=== PATIENT | male | born 1985 | race Caucasian/White ===

== ENCOUNTER 2017-04-26 18:48 | Emergency (ER) | payer BC, OTHER ==
--- NOTE | 2017-04-26 19:06 | EDM.PDOC ---
ED HPI GENERAL MEDICAL PROBLEM - General Chief Complaint: Upper Extremity Injury/Pain Stated Complaint: FINGER LACERATION Time Seen by Provider: 04/26/17 19:06 Source of Information: Reports: Patient History Limitations: Reports: No Limitations - History of Present Illness INITIAL COMMENTS - FREE TEXT/NARRATIVE: 31-year-old male reports an acute injury to his right third finger occurred when a gun safe fell on it this evening. Patient states was helping a neighbor move a gun safe down a stairwell he missed the last stair rolled his left ankle and lost his balance. This caused the gun safe to fall on top of his left hand injuring his middle phalanx. Of note he is right-hand dominant. Last tetanus toxoid was approximate 7 years ago. Wound is open and actively bleeding along the middle phalanx. There is an obvious deformity of the finger suggesting fracture. Patient finished supper about 1730 hrs. tonight. Onset: Today Onset Date: 04/26/17 Onset Time: 18:30 Duration: Minutes: Location: Reports: Upper Extremity, Right Quality: Reports: Ache, Throbbing Severity: Moderate Improves with: Reports: None Worsens with: Reports: Movement Context: Reports: Trauma (Crushtype injury.) Associated Symptoms: Reports: No Other Symptoms Treatments PROCESS TECHNICIAN: Reports: Other (see below) (None.) Right Hand Pain Score (Numeric/FACES): 8 - Related Data Allergies Allergy/AdvReac Type Severity Reaction Status Date / Time No Known Allergies Allergy Verified 04/26/17 19:01 Home Meds: Home Meds Doxycycline [Vibramycin] 100 mg PO Q12HR #20 cap 04/26/17 [Rx] oxyCODONE HCl/Acetaminophen [Percocet 5-325 mg Tablet] 1 - 2 each PO Q4H PRN # 20 tablet 04/26/17 [Rx] Social & Family History - Living Situation & Occupation Living situation: Reports: Occupation: Employed Review of Systems - Review of Systems Review Of Systems: See Below Constitutional: Reports: No Symptoms Eyes: Reports: No Symptoms Ears: Reports: No Symptoms Nose: Reports: No Symptoms Mouth/Throat: Reports: No Symptoms Respiratory: Reports: No Symptoms Cardiovascular: Reports: No Symptoms GI/Abdominal: Reports: No Symptoms Genitourinary: Reports: No Symptoms Musculoskeletal: Reports: Hand Pain (Right third finger) Skin: Reports: No Symptoms Neurological: Reports: No Symptoms Psychiatric: Reports: No Symptoms ED EXAM, GENERAL - Physical Exam Exam: See Below Exam Limited By: No Limitations General Appearance: Alert, WD/WN, No Apparent Distress Respiratory/Chest: No Respiratory Distress, Lungs Clear, Normal Breath Sounds Cardiovascular: Normal Peripheral Pulses, Regular Rate, Rhythm, No Edema, No Gallop, No Murmur GI/Abdominal: Normal Bowel Sounds, Soft, Non-Tender, No Organomegaly Extremities: Other (Examination of the right third finger reveals an obvious deformity no phalanx. He still has sensation to the tip on both ulnar and radial surfaces. There is a laceration--3cm mid volar aspect of the finger over the middle phalanx. This is jagged and deep. After finger was anesthetized he does have evidence of ability of flex at the DIP joint indicating that the tendons appear to be intact.) Psychiatric: Normal Affect, Normal Mood Skin Exam: Warm, Dry, Intact ED TRAUMA EXTREMITY PROCEDURES - Laceration/Wound Repair Right Middle Midline Finger Lac/Wound Length In cm: 3.0 Appearance: Subcutaneous, Irregular, Clean Distal NVT: Neuro & Vascular Intact, No Tendon Injury Anesthetic Type: Digital Local Anesthesia - Bupivicaine (Marcaine): 0.5% Plain Local Anesthetic Volume: Other (6 mL) Skin Prep: Chlorhexidine (Hibiciens), Saline Saline Irrigation (cc's): 200 Exploration/Debridement/Repair: Wound Explored, Minimal Debridement Closed With: Sutures Suture Size: 4-0 # of Sutures: 10 Suture Type: Nylon, Interrupted, Simple Course - Vital Signs Last Recorded V/S: Last Vital Signs Temp 35.8 C 04/26/17 19:01 Pulse 86 04/26/17 19:01 Resp 16 04/26/17 19:01 BP 144/83 H 04/26/17 19:01 Pulse Ox 95 04/26/17 19:01 - Orders/Labs/Meds Orders: Active Orders 24 hr Category Date Time Status Peripheral IV Care [RC] . DIRECTED Care 04/26/17 19:10 Active Hand Comp Min 3V Rt [CR] Stat Exams 04/26/17 19:07 Taken Peripheral IV Insertion Adult [OM.PC] Stat Oth 04/26/17 19:10 Ordered Meds: Medications Discontinued Medications Generic Name Dose Route Start Last Admin Trade Name Freq PRN Reason Stop Dose Admin Bupivacaine HCl 10 ml 04/26/17 19:09 04/26/17 19:27 Sensorcaine-Mpf 0.5% INJECT 04/26/17 19:10 10 ml ONETIME ONE Administration Cefazolin Sodium/Dextrose 1 gm 50 mls @ 100 mls/hr 04/26/17 19:10 04/26/17 19 :27 / Premix IV 04/26/17 19:39 100 mls/hr ONETIME ONE Administration Sodium Chloride 10 ml 04/26/17 19:10 04/26/17 19:27 Saline Flush FLUSH 10 ml ASDIRECTED PRN Administration Keep Vein Open - Radiology Interpretation Free Text/Narrative:: 31-year-old male presents to the ED after an acute injury to his right third finger about half hour before coming to the ED. Patient states he was helping a neighbor carry a gun safe down a stairwell. He missed the last stair rolled his ankle and lost his balance. This caused him to fall and gun safe landed on top of his right middle finger. Of note he is right-hand dominant. He has an obvious deformity to the middle phalanx with an open laceration. Tetanus toxoid was last updated 7 years ago. Planned peripheral IV lock. Ancef 1 g IV. Digital block lobe occur with Marcaine 0.5% and wound will be cleansed and washed out. X -ray right hand ordered. - Re-Assessments/Exams Free Text/Narrative Re-Assessment/Exam: 04/26/17 19:38 x-ray of the right hand reveals a fracture across the middle phalanx of the right third finger. No other fractures are identified in his fingers. The wound is open i.e. an open fracture wound will be cleansed under local anesthetic and washed out. We will then be tacked together despite provide hemostasis. Consultation with orthopedic surgeon Dr. Rodriguez did occur as he happened to be in the ED while patient was here. Plan will be for him to return tomorrow morning at 0 8:[address] Rodriguez in the clinic with a view to surgery around noon. 04/26/17 20:25: Patient's laceration volar aspect of the mid middle finger on the right side was sutured under digital block using 0.5% Marcaine. The wound was mildly debrided. It is very stellate and deep to the bone. Tendon appear to be intact. Sensation was normal to the distal aspect of the finger prior to digital block. Wound was irrigated with 200 mils of normal saline. Wound edges were then approximated with 10 4-0 nylon sutures. Wound was then dressed with topical antibiotic and Telfa pad and then finger cot dressing. Discharge patient on doxycycline 100 mg twice daily for 10 days. Also Percocet 5/3/25 milligram tablets one or 2 every 4-6 hours needed for pain relief. 20 tablets per provided through the ED. As directed above he will return to the orthopedic surgeons clinic tomorrow morning with a view to surgical pinning of the finger at approximately noon tomorrow. Departure - Departure Time of Disposition: 20:38 Disposition: Home, Self-Care 01 Condition: Fair Clinical Impression: Open fracture of finger of right hand Qualifiers: Encounter type: initial encounter Finger: middle finger Phalanx: middle Fracture alignment: displaced Qualified Code(s): S62.622B - Displaced fracture of middle phalanx of right middle finger, initial encounter for open fracture - Discharge Information Prescriptions: Doxycycline [Vibramycin] 100 mg PO Q12HR #20 cap oxyCODONE HCl/Acetaminophen [Percocet 5-325 mg Tablet] 1 - 2 each PO Q4H PRN # 20 tablet PRN Reason: pain relief. Instructions: Finger Fracture, [id number] Referrals: PCP,None [Primary Care Provider] - Forms: ED Department Discharge Additional Instructions: Evaluation in the emergency room today in regards to crush type injury to the right third finger that occurred about 1730 hrs. today. Examination revealed obvious deformity with suspected fracture middle phalanx. X-rays confirm this. There was a 3 cm laceration in the mid --lower aspect of the right third finger that was closed with 10 sutures under digital block. As discussed with Dr. Rodriguez orthopedic surgeon you are to attend his clinic at 0830 hrs. tomorrow morning. Nothing to eat after midnight. If you need pain pills she may take them with a sip of water. Initial dose of antibiotic has been provided through the ED ie.Ancef 1 gm. If you awaken during the night he may take first tablet of doxycycline 100 mg by mouth again with a sip of water only. - My Orders Last 24 Hours: My Active Orders 04/26/17 19:07 Hand Comp Min 3V Rt [CR] Stat 04/26/17 19:10 Peripheral IV Care [RC] . DIRECTED Peripheral IV Insertion Adult [OM.PC] Stat - Assessment/Plan Last 24 Hours: My Active Orders 04/26/17 19:07 Hand Comp Min 3V Rt [CR] Stat 04/26/17 19:10 Peripheral IV Care [RC] . DIRECTED Peripheral IV Insertion Adult [OM.PC] Stat
[2017-04-26] MEDS ORDERED: Bupivacaine 0.5% 10 ML SDV INJECT ONE (19:09)
[2017-04-26] MEDS ORDERED: Sodium Chloride 0.9% 10 ML Syringe FLUSH PRN (19:10)
[2017-04-26] MEDS ORDERED: ceFAZolin 1 GM in Premix Bag 1 BAG IV ONE (19:10)
--- NOTE | 2017-04-27 11:39 | CR ---
Right hand: Four views of the right hand were obtained. Comparison: No previous study. Slightly comminuted and displaced fracture is identified within the middle phalanx of the third finger. No additional fracture or other acute bony abnormality is seen. Small calcification is noted off the volar base of the middle phalanx of the fourth digit compatible with old avulsion injury. Soft tissue swelling is noted with soft tissue injury seen within the third digit. Impression: 1. Fracture as described above within the middle phalanx of the third finger with adjacent soft tissue swelling/injury. Diagnostic code #3
== END 2017-04-26 21:02 | disposition home or self-care (01) ==
LOC: JD.ED 18:48
DX: S62.622B Displaced fracture of middle phalanx of right middle finger, initial encounter for open fracture (principal); W20.8XXA Other cause of strike by thrown, projected or falling object, initial encounter
CPT/HCPCS: 12002; 73130; 96365; 99283; J0690; J7050

== ENCOUNTER 2017-04-27 11:05 | Day surgery (SDC) | payer OTHER, BC ==
[2017-04-27] MEDS ORDERED: fentaNYL 100 MCG/2 ML SDV ONE ×3 (11:06→13:32)
[2017-04-27] MEDS ORDERED: Lidocaine 1% 4 ML ONE (11:06)
[2017-04-27] MEDS ORDERED: Propofol 200 MG/20 ML SDV ONE ×6 (11:06→14:07)
[2017-04-27] MEDS ORDERED: Midazolam 1 MG/ML 2 ML SDV ONE (11:06)
[2017-04-27] MEDS ORDERED: Bupivacaine 0.25% 30 ML SDV ONE (11:16)
--- NOTE | 2017-04-27 11:40 | PCM.PREANE ---
Preanesthetic Assessment - Anesthesia/Transfusion/Family Hx Anesthesia History: Prior Anesthesia Without Reaction Family History of Anesthesia Reaction: No Transfusion History: No Prior Transfusion(s) Intubation History: Unknown - Review of Systems General: No Symptoms Pulmonary: No Symptoms Cardiovascular: No Symptoms Gastrointestinal: Other (Heart Burn) Neurological: No Symptoms Other: Reports: None - Physical Assessment NPO Status Date: 04/26/17 NPO Status Time: 22:00 Pulse: 63 O2 Sat by Pulse Oximetry: 97 Respiratory Rate: 16 Blood Pressure: 121/89 Temperature: 99.0 C Weight: 104 kg ASA Class: 1 Mental Status: Alert & Oriented x3 Airway Class: Mallampati = 2 Dentition: Reports: Normal Dentition Thyro-Mental Finger Breadths: 3 Mouth Opening Finger Breadths: 3 ROM/Head Extension: Full Lungs: Clear to Auscultation, Normal Respiratory Effort Cardiovascular: Regular Rate, Regular Rhythm - Lab Values: Laboratory Last Values MRSA (PCR) Negative 04/27/17 09:35 - Allergies Allergies/Adverse Reactions: Allergies Allergy/AdvReac Type Severity Reaction Status Date / Time No Known Allergies Allergy Verified 04/26/17 19:01 - Acknowledgements Anesthesia Type Planned: LOCO Pt an Appropriate Candidate for the Planned Anesthesia: Yes Alternatives and Risks of Anesthesia Discussed w Pt/Guardian: Yes Pt/Guardian Understands and Agrees with Anesthesia Plan: Yes PreAnesthesia Questionnaire - Past Health History Medical/Surgical History: Denies Medical/Surgical History - SUBSTANCE USE Smoking Status *Q: Never Smoker - HOME MEDS Home Medications: Home Meds Doxycycline [Vibramycin] 100 mg PO Q12HR #20 cap 04/26/17 [Rx] oxyCODONE HCl/Acetaminophen [Percocet 5-325 mg Tablet] 1 - 2 each PO Q4H PRN # 20 tablet 04/26/17 [Rx] - CURRENT (IN HOUSE) MEDS Current Meds: Current Medications Discontinued Medications Bupivacaine HCl (Marcaine 0.25%) Confirm Administered Dose 30 ml .ROUTE .STK- MED ONE Stop: 04/27/17 11:17 Fentanyl (Sublimaze) Confirm Administered Dose 100 mcg .ROUTE .STK-MED ONE Stop: 04/27/17 11:07 Lidocaine HCl (Xylocaine-Mpf 1%) Confirm Administered Dose 4 mls @ as directed .ROUTE .STK-MED ONE Stop: 04/27/17 11:07 Midazolam HCl (Versed 1 Mg/Ml) Confirm Administered Dose 2 mg .ROUTE .STK-MED ONE Stop: 04/27/17 11:07 Propofol (Diprivan 20 Ml) Confirm Administered Dose 200 mg .ROUTE .STK-MED ONE Stop: 04/27/17 11:07 Propofol (Diprivan 20 Ml) Confirm Administered Dose 200 mg .ROUTE .STK-MED ONE Stop: 04/27/17 11:07
[2017-04-27] MEDS ORDERED: Famotidine 20 MG/2 ML SDV ONE (11:44)
[2017-04-27] MEDS ORDERED: Lidocaine 1%/Sod Bicarbonate in NS 8.4% 1 ML Syringe IV ONE (11:59)
[2017-04-27] MEDS ORDERED: Lactated Ringers 1,000 ML IV SCH (12:00)
[2017-04-27] MEDS ORDERED: Sodium Chloride 0.9% 10 ML Syringe FLUSH SCH (12:00)
[2017-04-27] MEDS ORDERED: ceFAZolin 1 GM Vial ONE (12:04)
[2017-04-27] MEDS ORDERED: Ondansetron 4 MG/2 ML SDV ONE (12:07)
[2017-04-27] MEDS ORDERED: Ketamine 500 mg/10 ML MDV ONE (12:49)
--- NOTE | 2017-04-27 15:41 | CR ---
Right third finger: Five fluoroscopic spot views were obtained of the right third finger. Study obtained utilizing C-arm device. Comparison: Previous right hand exam of 04/26/17. Study shows reduction and fixation with plate and screws of previous fracture within the middle phalanx of the right third finger. Fluoroscopy time given as 75.9 seconds. Impression: 1. Reduction and fixation of previous fracture. Diagnostic code #2
--- NOTE | 2017-04-27 21:58 | PCM.OPNOTE ---
- General Post-Op/Procedure Note Date of Surgery/Procedure: 04/27/17 Operative Procedure(s): irrigation and debridement with open reduction internal fixation of right middle finger open middle phalanx fracture. 2. repair of extensor tendon right middle finger Pre Op Diagnosis: open fracture of right middle finger middle phalanx Post-Op Diagnosis: same with extensor tendon disruption Anesthesia Technique: Local, Regional Block Primary Surgeon: Luis Rodriguez Anesthesia Provider: Tonya Lion EBL in mLs: 20 Complications: None Condition: Good Free Text/Narrative:: Intake & Output 04/27/17 04/27/17 04/27/17 06:59 14:59 22:59 Intake Total 500 Balance 500
--- NOTE | 2017-04-29 14:46 | OR ---
DATE OF OPERATION: 04/27/2017 SURGEON: Luis Rodriguez MD OPERATION PERFORMED: 1. Irrigation and debridement with open reduction and internal fixation of right middle finger open middle phalanx fracture. 2. Repair of extensor tendon, right middle finger. PREOPERATIVE DIAGNOSIS: Open fracture of right middle finger phalanx. POSTOPERATIVE DIAGNOSIS: Open fracture of right middle finger phalanx with extensor tendon disruption. ANESTHESIA: Local with regional [place] block. ANESTHESIA PROVIDER: Brianda Plascencia. ESTIMATED BLOOD LOSS: 20 mL. COMPLICATIONS: None. CONDITION: Stable. DESCRIPTION OF PROCEDURE: The patient was identified in the preop holding area where proper site was marked and identified by the surgeon. The patient was taken back to the operating theater where, after adequate anesthesia with a Mike block, the patient's right upper extremity was sterilely prepped and draped in the usual sterile fashion. OR time-out was performed. The patient received 2 g of IV Ancef. At this time, the previous old stitches were removed. There was noted to be some nonviable skin as well as soft tissue. So, it was debrided at this time. 3 L of normal saline was then irrigated through the right finger through the volar laceration that was a longitudinal split down the middle phalanx. At this time, we did attempt to do a closed reduction with percutaneous pinning of the middle phalanx, but it did not have anatomic reduction. So, at this time, it was decided we would do it open. The skin laceration on the ulnar side did not allow for incision over there. So, we did a dorsal lateral incision on the radial side of the middle phalanx. This was taken down to the fracture site. The fracture site was identified. It was cleared of all soft tissue and hematoma. There was adequate reduction noted on both AP and lateral views. A [place] 1.7 mm locking mini frag plate was then placed. At this time, it was provisionally fixed both proximally and distally and was found to have adequate reduction on both AP and lateral views. Two more screws were placed proximally, and 2 more were placed distally to the fracture site, and it was found to have adequate fixation and reduction. At this time, it was also noted that the extensor tendon to the distal phalanx showed some disruption on the radial side. At this time, I did use a #4 Ethibond for reattachment of the radial-sided extensor tendon back to its insertional region as there was soft tissue still attached to this insertional region. Once this was completed, adequate saline was irrigated through all wounds. 3-0 Vicryl was used subcutaneously loosely, and then 4-0 nylon simple suture was used for closure of the skin. The patient was placed in a sterile soft dressing as well as a splint and sent to the PACU in stable condition. WILLA /[id number]
== END 2017-04-27 15:30 | disposition home or self-care (01) ==
LOC: JD.SDS 11:05
PROVIDERS: ATTEND Orthopaedic Surgery
DX: S62.622B Displaced fracture of middle phalanx of right middle finger, initial encounter for open fracture (principal); S66.312A Strain of extensor muscle, fascia and tendon of right middle finger at wrist and hand level, initial encounter
CPT/HCPCS: 26418; 26735; 76000; 87641; J0690; J2250; J2405; J3010; J3490; J7120; 00400; C1713; C1776; J2704